=== PATIENT | female | born 1985 | race Caucasian/White ===

== ENCOUNTER 2018-07-01 10:35 | Emergency (ER) | payer SELFPAY ==
[~2018-07-01] VITALS: Ht 160 cm; Wt 68.0 kg
[~2018-07-01 10:35] MED LIST: ALBU90OI INH; AZIT250 PO; CODGUAEL PO; IBUP600 PO; IBUP800 PO; OXYACE5T PO; RXOXYACE PO; TRAM50 PO
== END 2018-07-01 11:37 | disposition left against medical advice (07) ==
LOC: ER 10:35
DX: Z53.21 Procedure and treatment not carried out due to patient leaving prior to being seen by health care provider (principal)
CPT/HCPCS: 99281